=== PATIENT | female | born 1985 | race Caucasian/White ===

== ENCOUNTER 2019-06-05 11:35 | Outpatient (CLI) | payer OTHER, SELFPAY ==
--- NOTE | ~2019-06-05 | XR_ITS ---
LUMBAR SPINE INDICATION: Muscle strain. Low back pain. TECHNIQUE: 3 views lumbar spine COMPARISON: None FINDINGS: No fracture, subluxation or dislocation. No evidence for spondylolysis or spondylolisthesi s. Vertebral bodies and disk spaces are preserved. There are 5 lumbar-type vertebra. Sacral foramen are symmetric. Pedicles intact. IMPRESSION: 1: No significant abnormality of the lumbar spine identified. Reviewed, dictated and finalized at location A. RIVETING MACHINE OPERATOR HELPER
--- NOTE | ~2019-06-05 | XR_ITS ---
XR_[id number]_CR 06/05/2019 12:17 Indication: Muscle strain. Neck pain. Procedure: 3 views cervical spine Comparison: No prior studies for comparison. Findings: Vertebral body and disc heights are preserved. Normal cervical lordosis. No prevertebral so ft tissue swelling. No fracture or traumatic malalignment. Odontoid process within normal limits. Lat eral masses are normally aligned. Lung apices are normal. Impression: 1: No significant abnormality of the cervical spine. Reviewed, dictated and finalized at location A. TIONAL PSYCHOLOGIST Impression: 1: No significant abnormality of the cervical spine.
--- NOTE | ~2019-06-05 | XR_ITS ---
XR thoracic spine 3V 06/05/2019 12:17 Indication: Muscle strain. Back pain. Procedure: 3 views of the thoracic spine Comparison: No prior studies for comparison. Findings: Vertebral body and disc heights are maintained. Normal thoracic alignment. Pedicles are int act. No paraspinal soft tissue abnormality. Surrounding osseous structures and soft tissues are unrem arkable. Impression: 1: No significant abnormality of the thoracic spine. Reviewed, dictated and finalized at location A. SPECIALIST Impression: 1: No significant abnormality of the thoracic spine.
== END 2019-06-05 11:36 ==
PROVIDERS: PCP Family Medicine; Visit Provider Physician Assistant
DX: S16.1XXA Strain of muscle, fascia and tendon at neck level, initial encounter (principal); S39.012A Strain of muscle, fascia and tendon of lower back, initial encounter; X58.XXXA Exposure to other specified factors, initial encounter
CPT/HCPCS: 72040; 72072; 72100

== ENCOUNTER → 2020-02-14 17:54 | Outpatient (CLI) | payer OTHER, SELFPAY ==
--- NOTE | ~2020-02-14 | MM_ITS ---
EXAMINATION: MM screening xochitl BI w vince HISTORY: Screening mammogram, family history of breast cancer in her mother at age 34. TECHNIQUE: Craniocaudal and mediolateral oblique 3-D tomosynthesis images were obtained and synthetic 2-D images were generated. CAD analysis was submitted and interpreted. COMPARISON: 04/01/2018 BREAST PARENCHYMAL COMPOSITION: The breasts are heterogeneously dense, which may obscure small masses . FINDINGS: There is no evidence of suspicious mass, calcification, or architectural distortion to sugg est malignancy in either breast. There has been no suspicious interval change. IMPRESSION: 1. No mammographic evidence of malignancy. 2. Recommend routine screening mammography in one year given the history of breast cancer in her moth er at age 35. BI-RADS Category 1: Negative Reviewed, dictated and finalized at location A. CLOTH INSPECTOR IMPRESSION: 1. No mammographic evidence of malignancy. 2. Recommend routine screening mammography in one year given the history of sue ast cancer in her mother at age 34. BI-RADS Category 1: Negative
== END ==
PROVIDERS: PCP Family Medicine; Visit Provider Advanced Practice Midwife
DX: Z12.31 Encounter for screening mammogram for malignant neoplasm of breast (principal)
CPT/HCPCS: 77063; 77067

== ENCOUNTER 2020-03-08 06:54 | Outpatient (NON) | payer OTHER, SELFPAY ==
[2020-03-09 16:05] LABS: SARS-CoV-2 RNA PCR Negative
== END 2020-03-08 06:55 ==
LOC: ANHCOVIDDT 07:01
PROVIDERS: PCP Family Medicine; Visit Provider Family Medicine
DX: J02.9 Acute pharyngitis, unspecified (principal); R05 Cough; Z20.828 Contact with and (suspected) exposure to other viral communicable diseases
CPT/HCPCS: 87635; C9803; U0003

== ENCOUNTER → 2020-07-04 09:38 | Outpatient (CLI) | payer OTHER, SELFPAY ==
--- NOTE | ~2020-07-04 | MR_ITS ---
EXAMINATION: MR cervical spine wo con DATE: 07/04/2020 10:18 INDICATION: Neck pain limited range of motion. Left shoulder tingling, numbness and weakness. TECHNIQUE: Magnetic resonance imaging (MRI) of the cervical spine was performed without intravenous c ontrast. Sequences included sagittal T2-weighted FSE, sagittal T2-weighted FS FSE, sagittal T1-weight ed FSE, axial MERGE and axial T2-weighted FSE. COMPARISON: None FINDINGS: Evaluation mildly limited by small amount of motion artifact or blurring to some degree on all sequen balta. Bone alignment is normal. Vertebral body heights are normal. Bone marrow signal intensity is n ormal. Intervertebral disc heights are normal. Cord signal intensity is normal. Cervical soft tissues are unremarkable. The following disc levels are specifically discussed: C2-C3: The disc does not extend beyond the endplate margin. There is no uncovertebral joint osteoarth ritis. There is mild bilateral facet joint osteoarthritis. There is no neural foraminal stenosis. The re is no central canal stenosis. C3-C4: The disc does not extend beyond the endplate margin. There is no uncovertebral joint osteoarth ritis. There is mild right and mild to moderate left facet joint osteoarthritis. There is no neural f oraminal stenosis. There is no central canal stenosis. C4-C5: The disc does not extend beyond the endplate margin. There is mild bilateral uncovertebral jose nt osteoarthritis. There is mild right and mild to moderate left facet joint osteoarthritis. There is no neural foraminal stenosis. There is no central canal stenosis. C5-C6: Disc is mildly bulging. There is mild bilateral uncovertebral joint osteoarthritis. There is m ild right and mild to moderate left facet joint osteoarthritis. There is mild left neural foraminal s tenosis. There is minimal central canal stenosis. C6-C7: Disc is bulging with annular fissure. There is mild left and mild to moderate right uncoverteb ral joint osteoarthritis. There is mild bilateral facet joint osteoarthritis. There is mild left and minimal right neural foraminal stenosis. There is mild central canal stenosis. C7-T1: The disc does not extend beyond the endplate margin. There is no uncovertebral joint osteoarth ritis. There is mild right and mild to moderate left facet joint osteoarthritis. There is minimal lef t neural foraminal stenosis. There is no central canal stenosis. IMPRESSION: 1. Mild cervical spondylosis. Reviewed, dictated and finalized at location B.
== END ==
PROVIDERS: PCP Family Medicine; Visit Provider Physician Assistant
DX: M47.892 Other spondylosis, cervical region (principal)
CPT/HCPCS: 72141

== ENCOUNTER 2022-02-11 05:12 | Inpatient (IN) | payer OTHER, SELFPAY ==
[2022-02-11] VITALS (18 sets, daily range): BP systolic 111–143; BP diastolic 72–99; PULSE 84–122; RESP 16; TEMP 36.5–37.3; O2SAT 98–99; BMI 34.1
--- OUTSIDE RECORDS SUMMARY | 2022-02-11 05:16 | XMS_ITS | Encounter Summary ---
:1985 Author Care Team Providers Name Role Phone Irma Tucker Primary Care Provider [phone] Reason for Visit OB visit OB [id number] EDC 02/18/2022 LMP 04/20/2021 Assessment and Plan Assessment Note Patient is _36__weeks . Discuss ed plan. 1. Routine care Discussion Note: None recorded.Patient educational handouts: No information available. Plan of Care Reminders Provider Appointments [facility] on or around 02/19/2022 Dodie Dacosta CNM Lab None recorded. ? ? Referral None recorded. ? ? Procedures None recorded. ? ? Surgeries None recorded. ? ? Imaging None recorded. ? ? Medications Name Start Date ? ? Acid Lumber Racker (famotidine) 10 mg tablet ? Adult Aspirin 81 mg chewable tablet ? ergocalciferol (vitamin D2) 1,250 mcg (50,000 unit) ca psule ? TAKE 1 CAPSULE EVERY WEEK BY ORAL ROUTE. escitalopram 10 mg tablet ? TAKE 1 TABLET BY MOUTH EVERY DAY Pepcid ? Vitamin ? Medications Administered None recorded. Vitals Height Weight BMI Blood Pressure 5 ft 1 in 178 lbs 33.6 kg/m2 127/76 mm[Hg] Results Lab Results None recorded. Allergies Code Code System Name Reaction Severity Onset NKDA ? ? ? Problems Name Status Onset Date Source ? Tobacco User Active 01/03/2021 ? Family History of Malignant Neoplasm of Breast in First Degr ee Active 01/03/2021 ? Relative
--- OUTSIDE RECORDS SUMMARY | 2022-02-11 05:16 | XMS_ITS ---
:1985 Author Care Team Providers Name Role Phone RIGOBERTO ALLISON DO Primary Care Provider [phone] Allergies Code Code System Name Reaction Severity Status Onset NKDA ? Medications Name Status Start Date Stop Date ? ? Acid Riveter (famotidine) 10 mg tablet Active ? Not available Adult Aspirin 81 mg chewable tablet Active ? Not available Adult Low Dose Aspirin Completed ? 2 bupropion HCl XL 150 mg 24 hr tablet, extended release Completed ? 08/08/2021 TAKE 1 TABLET BY MOUTH EVERY DAY chlorhexidine gluconate 0.12 % mouthwash Completed ? 01/03/2021 RINSE 2 3 TIMES DAILY AND SPIT PER PACKAGE MURPHY [place] (28) Completed ? 04/23/2021 cyclobenzaprine 5 mg tablet Completed ? 08/2020 ergocalciferol (vitamin D2) 1,250 mcg (50,000 unit) capsule Acti ve ? Not available TAKE 1 CAPSULE EVERY WEEK BY ORAL ROUTE. escitalopram 10 mg tablet Active ? Not av ailable ibuprofen 800 mg tablet Completed ? 01/04/20 21 TAKE 1 TABLET BY MOUTH EVERY 8 HOURS NEEDED FOR PAIN Low-Ogestrel (28) 0.3 mg-30 mcg tablet Completed ? 02/16/2021 meloxicam 15 mg tablet Completed ? 1 naproxen 500 mg tablet Completed ? 1 Pepcid Active ? Not available Vitamin Active ? Not available tizanidine Completed ? 02/16/2021 tizanidine 2 mg tablet Completed ? 2 TAKE 1 TABLET BY MOUTH THREE TIMES A DAY NEEDED FOR PAIN Problems Name Status Onset Date Source ? Tobacco User Active 01/03/2021 ? Family History of Malignant Neoplasm of Breast in First Degr ee Active 01/03/2021
--- OUTSIDE RECORDS SUMMARY | 2022-02-11 05:16 | XMS_ITS | Encounter Summary ---
:1985 Author Care Team Providers Name Role Phone Irma Tucker Primary Care Provider [phone] Reason for Visit OB visit OB [id number] EDC 02/18/2022 LMP 04/20/2021 Assessment and Plan Assessment Note Patient is _32__weeks . Discuss ed plan. 1. Routine care Discussion Note: None recorded.Patient educational handouts: No information available. Plan of Care Reminders Provider Appointments [facility] on or around 02/19/2022 Dodie Dacosta CNM Lab None recorded. ? ? Referral None recorded. ? ? Procedures None recorded. ? ? Surgeries None recorded. ? ? Imaging None recorded. ? ? Medications Name Start Date ? ? Acid [place] Health Officer (famotidine) 10 mg tablet ? Adult Aspirin 81 mg chewable tablet ? ergocalciferol (vitamin D2) 1,250 mcg (50,000 unit) ca psule ? TAKE 1 CAPSULE EVERY WEEK BY ORAL ROUTE. escitalopram 10 mg tablet ? TAKE 1 TABLET BY MOUTH EVERY DAY Pepcid ? Vitamin ? Medications Administered None recorded. Vitals Height Weight BMI Blood Pressure 5 ft 1 in 171 lbs 32.3 kg/m2 110/72 mm[Hg] Results Lab Results None recorded. Allergies Code Code System Name Reaction Severity Onset NKDA ? ? ? Problems Name Status Onset Date Source ? Tobacco User Active 01/03/2021 ? Family History of Malignant Neoplasm of Breast in First Degr ee Active 01/03/2021 ? Relative Pregnanc
--- OUTSIDE RECORDS SUMMARY | 2022-02-11 05:16 | XMS_ITS | Encounter Summary ---
:1985 Author Care Team Providers Name Role Phone Irma Tucker Primary Care Provider [phone] Reason for Visit None recorded. Assessment and Plan 1. Pre-existing maternal disease compli cating ? US, obstetric, follow-up Discussion Note: None recorded.Patient educational handouts: No information available. Plan of Care Reminders Provider Appointments [facility] on or around Dodie Dacosta CNM 02/19/2022 Lab None recorded. ? ? Referral None recorded. ? ? Procedures None recorded. ? ? Surgeries None recorded. ? ? Imaging US, Obstetric, 12/26/2021 [place] Follow-up Medications Name Start Date ? ? Acid Breaker Layer (famotidine) 10 mg tablet ? Adult Aspirin 81 mg chewable tablet ? ergocalciferol (vitamin D2) 1,250 mcg (50,000 unit) ca psule ? TAKE 1 CAPSULE EVERY WEEK BY ORAL ROUTE. escitalopram 10 mg tablet ? TAKE 1 TABLET BY MOUTH EVERY DAY Pepcid ? Vitamin ? Medications Administered None recorded. Vitals None recorded. Results Lab Results None recorded. Allergies Code Code System Name Reaction Severity Onset NKDA ? ? ? Problems Name Status Onset Date Source ? Tobacco User Active 01/03/2021 ? Family History of Malignant Neoplasm of Breast in First Degr ee Active 01/03/2021 ? Relative Active 08/08/2021 ? Anxiety Active ? ? Exceptionally Large at Active
--- OUTSIDE RECORDS SUMMARY | 2022-02-11 05:16 | XMS_ITS | Encounter Summary ---
:1985 Author Care Team Providers Name Role Phone Irma Tucker Primary Care Provider [phone] Reason for Visit None recorded. Assessment and [...] None recorded. ? ? Imaging US, Obstetric, 01/23/2022 [place] Follow-up Medications Name Start Date ? ? Acid Head Of Conservation (famotidine) 10 mg tablet ? Adult Aspirin [...]
--- OUTSIDE RECORDS SUMMARY | 2022-02-11 05:16 | XMS_ITS | Encounter Summary ---
:1985 Author Care Team Providers Name Role Phone Irma Tucekr Primary Care Provider [phone] Reason for Visit OB visit OB [id number] EDC 02/18/2022 LMP 04/20/2021 Assessment and Plan Assessment Note Patient is __30_weeks . Discuss ed plan. 1. Routine care Discussion Note: None recorded.Patient educational handouts: No information available. Plan of Care Reminders Provider Appointments [facility] on or around 02/19/2022 Dodie Dacosta CNM Lab None recorded. ? ? Referral None recorded. ? ? Procedures None recorded. ? ? Surgeries None recorded. ? ? Imaging None recorded. ? ? Medications Name Start Date ? ? Acid Mission Assessment Specialist (famotidine) 10 mg tablet ? Adult Aspirin 81 mg chewable tablet ? ergocalciferol (vitamin D2) 1,250 mcg (50,000 unit) ca psule ? TAKE 1 CAPSULE EVERY WEEK BY ORAL ROUTE. escitalopram 10 mg tablet ? TAKE 1 TABLET BY MOUTH EVERY DAY Pepcid ? Vitamin ? Medications Administered None recorded. Vitals Height Weight BMI Blood Pressure 5 ft 1 in 166 lbs 31.4 kg/m2 123/80 mm[Hg] Results Lab Results None recorded. Allergies Code Code System Name Reaction Severity Onset NKDA ? ? ? Problems Name Status Onset Date Source ? Tobacco User Active 01/03/2021 ? Family History of Malignant Neoplasm of Breast in First Degr ee Active 01/03/2021 ? Relative Pregnanc
--- OUTSIDE RECORDS SUMMARY | 2022-02-11 05:16 | XMS_ITS | Encounter Summary ---
:1985 Author Care Team Providers Name Role Phone Irma Tucker DO Primary Care Provider [phone] Reason for Visit OB visit OB [id number] EDC 02/18/2022 LMP 04/20/2021 Assessment and Plan Assessment Note Patient is ___weeks . Discussed plan. 1. Routine care Discussion Note: None recorded.Patient educational handouts: No information available. Plan of Care Reminders Provider Appointments [facility] on or around 02/19/2022 Dodie Dacosta CNM Lab None recorded. ? ? Referral None recorded. ? ? Procedures None recorded. ? ? Surgeries None recorded. ? ? Imaging None recorded. ? ? Medications Name Start Date ? ? Acid Optics Engineer (famotidine) 10 mg tablet ? Adult Aspirin [...] ft 1 in 178 lbs 33.6 kg/m2 122/76 mm[Hg] Results Lab Results None recorded. Allergies Code Code System Name Reaction Severity Onset NKDA ? ? ? Problems Name Status Onset Date Source ? Tobacco User Active 01/03/2021 ? Family History of Malignant Neoplasm of Breast in First Degr ee Active 01/03/2021 ? Relative
--- OUTSIDE RECORDS SUMMARY | 2022-02-11 05:16 | XMS_ITS | Encounter Summary ---
:1985 Author Care Team Providers Name Role Phone Irma Tucker Primary Care Provider [phone] Reason for Visit OB visit OB [id number] EDC 02/18/2022 LMP 04/20/2021 Assessment and Plan Assessment Note Patient is _34__weeks . Discuss ed plan. 1. Routine care Discussion Note: None recorded.Patient educational handouts: No information available. Plan of Care Reminders Provider Appointments [facility] on or around 02/19/2022 Dodie Dacosta CNM Lab None recorded. ? ? Referral None recorded. ? ? Procedures None recorded. ? ? Surgeries None recorded. ? ? Imaging None recorded. ? ? Medications Name Start Date ? ? Acid Inspector Fibrous Wallboard (famotidine) 10 mg tablet ? Adult Aspirin 81 mg chewable tablet ? ergocalciferol (vitamin D2) 1,250 mcg (50,000 unit) ca psule ? TAKE 1 CAPSULE EVERY WEEK BY ORAL ROUTE. escitalopram 10 mg tablet ? TAKE 1 TABLET BY MOUTH EVERY DAY Pepcid ? Vitamin ? Medications Administered None recorded. Vitals Height Weight BMI Blood Pressure 5 ft 1 in 172 lbs 32.5 kg/m2 121/85 mm[Hg] Results Lab Results None recorded. Allergies Code Code System Name Reaction Severity Onset NKDA ? ? ? Problems Name Status Onset Date Source ? Tobacco User Active 01/03/2021 ? Family History of Malignant Neoplasm of Breast in First Degr ee Active 01/03/2021 ? Relative
--- OUTSIDE RECORDS SUMMARY | 2022-02-11 05:16 | XMS_ITS ---
:1985 Author Care Team Providers Name Role Phone RIMMA SHANE MD Primary Care Provider [phone] Allergies Code Code System Name Reaction Severity Status Onset NKDA ? Medications Name Status Start Date Stop Date ? ? amoxicillin 500 mg capsule Unknown ? Not a vailable TK ONE C PO TID clonazepam 0.5 mg tablet Completed ? 018 TK 1 T PO BID Cryselle (28) 0.3 mg-30 mcg tablet Active ? Not available cyclobenzaprine 5 mg tablet Active ? Not available desogestrel 0.15 mg-ethinyl estradiol 0.03 mg tablet Active ? Not available hydrocodone 5 mg-acetaminophen 325 mg tablet Active ? Not available Jolivette 0.35 mg tablet Unknown ? Not chris ilable TK ONE T PO D Mononessa (28) 0.25 mg-35 mcg tablet Unknown ? Not available TK 1 T PO ONCE D naproxen 500 mg tablet Active ? Not avail able penicillin V potassium 500 mg tablet Active ? Not available tramadol 50 mg tablet Active ? Not availa ble Problems Name Status Onset Date Source ? Fibrocystic Disease of Breast Unknown ? En counter Irregular Periods Unknown ? Encounter Shoulder Dystocia - Delivered Unknown ? ? Unexplained Weight Loss Active ? Encounte r Reduced Libido Unknown ? Encounter Routine Care Unknown ? ? Care Unknown ? ? Procedures Date Name Performed by ? 03/31/2012 Other Information not avsabiha ramírez Notes: wisdom teeth 01/28/2013 MAMMO, Diagnostic, Digital, Information not available Bilat
--- OUTSIDE RECORDS SUMMARY | 2022-02-11 05:17 | XMS_ITS | Encounter Summary ---
:1985 Author Care Team Providers Name Role Phone Irma Tucker Primary Care Provider [phone] Reason for Visit None recorded. Assessment and Plan 1. Marginal insertion of umbilical cord ? US, obstetric, follow-up Discussion Note: None recorded.Patient educational handouts: No information available. Plan of Care Reminders Provider Appointments [facility] on or around Dodie Dacosta CNM 02/19/2022 Lab None recorded. ? ? Referral None recorded. ? ? Procedures None recorded. ? ? Surgeries None recorded. ? ? Imaging US, Obstetric, 11/28/2021 [place] Follow-up Medications Name Start Date ? ? Acid Utilization Reviewer (famotidine) 10 mg tablet ? Adult Aspirin [...] Active ? ? Exceptionally Large at Active ? ?
--- OUTSIDE RECORDS SUMMARY | 2022-02-11 05:17 | XMS_ITS | Encounter Summary ---
:1985 Author Care Team Providers Name Role Phone Irma Tucker Primary Care Provider [phone] Reason for Visit OB visit OB [id number] EDC 02/18/2022 LMP 04/20/2021 Assessment and Plan Assessment Note Patient is __28_weeks . Discuss ed plan. 1. Routine care Discussion Note: None recorded.Patient educational handouts: No information available. Plan of Care Reminders Provider Appointments [facility] on or around 02/19/2022 Dodie Dacosta CNM Lab None recorded. ? ? Referral None recorded. ? ? Procedures None recorded. ? ? Surgeries None recorded. ? ? Imaging None recorded. ? ? Medications Name Start Date ? ? Acid Life Science Teacher (famotidine) 10 mg tablet ? Adult Aspirin 81 mg chewable tablet ? ergocalciferol (vitamin D2) 1,250 mcg (50,000 unit) ca psule ? TAKE 1 CAPSULE EVERY WEEK BY ORAL ROUTE. escitalopram 10 mg tablet ? TAKE 1 TABLET BY MOUTH EVERY DAY Pepcid ? Vitamin ? Medications Administered None recorded. Vitals Height Weight BMI Blood Pressure 5 ft 1 in 162 lbs 30.6 kg/m2 115/77 mm[Hg] Results Lab Results None recorded. Allergies Code Code System Name Reaction Severity Onset NKDA ? ? ? Problems Name Status Onset Date Source ? Tobacco User Active 01/03/2021 ? Family History of Malignant Neoplasm of Breast in First Degr ee Active 01/03/2021 ? Relative
--- NOTE | 2022-02-11 05:51 | LDADM ---
This patient, Di Michael, was admitted to Labor/Delivery/Recovery 105 on 02/11/22 at 05:12. Plans for labor, pain management and were discussed with patient. Patient/family oriented to hospital policies and general routines including ID bracelet, bed and alarms, visiting hours, pain management, procedures, bathroom and other care routines, personal items, smoking policy, room service/diet and guest tray routines, security routines, and visiting hours. Patient/Family are encouraged to report perceived risks to care and to ask questions if they do not understand what they are told or what they should do. See OBIX for further documentation.
[2022-02-11 05:59] LABS: Basophils Absolute Auto 0.1 K/mm3 (0.0-0.1); Basophils Percent Auto 0.5 % (0.2-1.2); Eosinophils Absolute Auto 0.1 K/mm3 (0-0.3); Eosinophils Percent Auto 1.2 % (0-4.4); Hematocrit 36.9 % (37.0-47.0); Hemoglobin 12.2 g/dL (12.0-15.0); Immature Granulocyte Absolute 0.16 K/mm3 (0.00-0.031); Immature Granulocyte Percent A 1.7 % (0-0.5); Lymphocytes Absolute Auto 2.22 K/mm3 (0.9-3.2); Mean Corpuscular HGB Conc 33.1 g/dl (32-36); Mean Corpuscular Hemoglobin 31.6 pg (26-34); Mean Corpuscular Volume 95.6 fl (80-100); Mean Platelet Volume 11.6 fl (7.4-10.4); Monocytes Absolute Auto 0.9 K/mm3 (0.1-0.6); Monocytes Percent Auto 9.2 % (2.6-8.5); Neutrophils Absolute Auto 6.2 K/mm3 (1.3-6.7); Neutrophils Percent Auto 64.4 % (45.5-73.1); Platelet Count Result 151 k/mm3 (150-375); Red Blood Count 3.86 M/mm3 (4.2-5.4); Red Cell Distribution Width 13.2 % (11.5-14.5); White Blood Count 9.6 K/mm3 (4.5-10.0)
[2022-02-11] MEDS: LACTATED RINGERS 1,000 ML 125 ML IV CONT (06:14)
[2022-02-11] MEDS: OXYTOCIN 30 UNITS/NS 500 ML 30 UNITS/500 ML BAG IV CONT (06:14)
[2022-02-11 07:13] LABS: Rapid Plasma Reagin Non-Reactive (NonReactive)
--- NOTE | 2022-02-11 07:20 | WPDOBADMIT ---
Obstetrics - Admit Note Admission Note: record reviewed. No pertinent additions to the history and/or any subsequent changes in the physical findings that are not consistent with the expected course of the were found. IOL at 39 weeks sve 260/-2 AROM moderate amount of clear odorless fluid, anticipate vaginal delivery Additions to the history and/or subsequent changes in the physical findings follow. None.
[2022-02-11] MEDS: FAMOTIDINE 20 MG/2 ML VIAL IV PUSH (08:53)
--- NOTE | 2022-02-11 10:28 | PM.OBPRVD ---
OB - Delivery Note Procedure Delivery date: 02/11/22 Procedure: Induction method: AROM and Per Pitocin Protocol Delivery monitor: External FHT and External Uterine Laceration Description: Perineal - 1st Degree Delivery repair: vicryl Specimen: No Quantitative Blood Loss (ml): 200 Anesthesia type: Epidural Disposition: Floor Narrative: mom and baby stable and doing skin to skin [place] Baby Date of : 02/11/22 Time of : 10:03 Weeks of gestation at delivery: 39 Infant gender: Male Weight (pounds): 9 Weight (ounces): 10 presentation: vertex position: Right Occiput Anterior Placenta delivery description: Spontaneous Cord Vessel Description: 3 Vessels, Clamped/Cut and Delayed Cord Clamping score one minute: 8 score five minutes: 9
[2022-02-11] MEDS: ACETAMINOPHEN 325 MG TABLET 650 MG PO ×2 (12:06→19:57)
[2022-02-11] MEDS: WITCH HAZEL 40 PADS 1 PAD TOPICAL (12:07)
[2022-02-11] MEDS: BENZOCAINE 20% AER SPR (*SP) 56 GM CAN 1 SPRAY TOPICAL (12:07)
--- NOTE | 2022-02-11 15:08 | OBPPTRN ---
1425-Patient transferred to post room #292 via wheelchair. Support person present. Oriented to unit, room, information board, rooming in, admission packet and security measures. Patient verbalizes understanding.
[2022-02-11] MEDS: IBUPROFEN 600 MG TABLET PO ×2 (15:41→23:26)
[2022-02-12 00:30] VITALS: BP 109/71; PULSE 91; RESP 18; TEMP 36.6; O2SAT 98
[2022-02-12 04:28] VITALS: BP 112/74; PULSE 93; RESP 16; TEMP 36.8; O2SAT 98
[2022-02-12] MEDS: ACETAMINOPHEN 325 MG TABLET 650 MG PO ×2 (04:29→10:46)
[2022-02-12 05:14] LABS: Hematocrit 29.8 % (37.0-47.0); Hemoglobin 10.1 g/dL (12.0-15.0)
[2022-02-12] MEDS: IBUPROFEN 600 MG TABLET PO (05:50)
--- NOTE | 2022-02-12 07:26 | P.PNOB_ITS ---
OB - PN: Subj Subjective Date/time seen: 02/12/22 07:26 Patient comments: no complaints and pain well controlled baby status: doing well and nursing well [place] feeding status: exclusively breast feeding Narrative: would like DC home today. OB - PN: Obj Data Labs CBC & Chem 7: 02/12/22 04:25 Labs: Laboratory Results - last 24 hr 02/11/22 02/12/22 05:49 04:25 Hgb 10.1 L Hct 29.8 L Blood Type O Positive Antibody Screen Negative OB - PN A/P Assessment and Plan (1) , delivered: Code(s): O80 - Encounter for full-term uncomplicated delivery Status: Acute Plan day: 1 Plan: routine care Comments: DC home today Time Spent With Patient Time: Total time spent is greater than 50% in coordination of care (as documented) at patient's floor/unit and/or counseling patient: Time with patient: less than 15 minutes Exam Narrative: NAD abdomen soft, nontender, fundus firm below the umbilicus Extremities nontender, 1+ edema
--- NOTE | 2022-02-12 07:31 | P.DS_ITS ---
DS: Admitting Diagnosis Discharge Date 02/12/22 Admitting Diagnosis term IUP, IOL DS: Discharge Diagnosis Discharge Diagnosis (1) , delivered: Code(s): O80 - Encounter for full-term uncomplicated delivery Status: Acute OB - DS: Summary Hospital Course Hospital Course: Di was admitted at term for an elective induction. She proceeded to have an uncomplicated vaginal delivery and course. She was discharged home in stable condition on PPD 1. OB Procedures : Ultrasound OB Procedures Intrapartum: Spontaneous Vag Delivery OB Procedures: : None Peripartum Data Delivery Method: Natural Vaginal complications: none Status at Discharge Functional status at discharge: independent ambulation Time Spent with Patient Time attestation: Total time spent providing and/or coordinating discharge services: Exam Narrative: NAD abdomen soft, appropriately tender Ext non tender, 1+ edema DS: Data Data Completed and Pending Labs on day of discharge: Labs from last 24 hours 02/12/22 02/11/22 04:25 05:49 Hgb 10.1 L Hct 29.8 L Blood Type O Positive Antibody Screen Negative Discharge Plan Discharge Attending physician on discharge: Flakita Mohan Discharging Clinician: Flakita Mohan Anticipated Discharge Date/Time: 02/12/22 07:28 Patient Disposition: Home, Self-Care Activity: pelvic rest Diet: regular Patient Instructions: Antibiotic Form Stand Alone Forms: General Discharge Information Follow-up/Referrals: Dodie Dacosta CNM [Certified Nurse Meter Changes Records Clerk] - 4 Weeks Discharge Medications: Continued famotidine [Pepcid AC] 10 mg Tablet 10 mg PO BID ergocalciferol (vitamin D2) [Vitamin D2] 1,250 mcg (50,000 unit) Capsule 1,250 mcg PO WEEKLY #2 Tablet 1 tablet PO DAILY escitalopram oxalate [Lexapro] 10 mg Tablet 10 mg PO DAILY Discontinued aspirin [Yaa Low Dose Aspirin] 81 mg Tablet,Delayed Release (Dr/Ec) 81 mg PO DAILY Date of admission: 02/11/22 05:12 Primary Care Provider: Irma Tucker Admitting Provider: Mili Mendoza Attending physician on admission: Mili Mendoza Condition: Stable
[2022-02-12 07:40] VITALS: BP 107/64; PULSE 90; RESP 18; TEMP 37.1; O2SAT 100
--- NOTE | 2022-02-12 09:26 | PC.NURSE ---
0830 Patient viewed the discharge video Mother & Baby Care, The First Two Weeks . Patient was given the opportunity and encouraged to ask questions. Patient verbalized understanding of information shared and has been given the mother/baby guide for home reference.
[2022-02-12] MEDS: TETANUS,DIPHTHERIA,AC PERTUSSIS ADULT (0.5 ML) BOOSTRIX IM (10:41)
[2022-02-12] MEDS: MULTIVIT/MIN/PREN/FOL AC/IRON TABLET 1 TAB PO (10:41)
[2022-02-12] MEDS: DOCUSATE SODIUM 100 MG CAPSULE PO (10:41)
--- NOTE | 2022-02-12 11:53 | PC.NURSE ---
1106 Introduction was made when entering the room. Mother is in the restroom and reports is going well . RN will check back later.
--- NOTE | 2022-02-12 13:25 | PC.NURSE ---
1320 - Mother led the conversation with her experience and plan to feed her so far and is demonstrating her ability to independently latch optimally without discomfort. Mother is feeding appropriately for growth of and understands stimulating to eat if needed. has had appropriate feedings in the last 24 hours meets the outcomes for weight, output and jaundice at this time. Mother states she is confident to continue effectively her infant at home or when to call for assistance and denies any additional assistance or education at this time.
[2022-02-13 11:47] VITALS: BP 127/62; PULSE 87; RESP 16; TEMP 36.9; O2SAT 99
== END 2022-02-12 13:45 | disposition home or self-care (01) | DRG 807 ==
LOC: ANHOB2 02-12 12:21 → ANHLDR 02-14 07:11 → ANHOB2 02-14 07:11
PROVIDERS: Advanced Practice Midwife; Admitting Provider Obstetrics & Gynecology; PCP Family Medicine; Visit Provider Obstetrics & Gynecology
DX: O70.0 First degree perineal laceration during delivery (principal); Z37.0 Single live birth; Z3A.39 39 weeks gestation of pregnancy
CPT/HCPCS: 36415; 85014; 85018; 85025; 86592; 86850; 86900; 86901; 90715; A9270; J2590; J7120